=== PATIENT | male | born 1955 | race Caucasian/White ===

== ENCOUNTER 2021-06-23 07:02 | Day surgery (SDC) | payer MEDICARE, BC ==
[~2021-06-23] VITALS: Ht 180.3 cm; Wt 147.7 kg
[2021-06-23] MEDS ORDERED: glucagon, human recombinant 1mg kit ONE (07:10)
[2021-06-23] MEDS ORDERED: diphenhydrAMINE 50 mg/ml inj ONE (07:10)
[2021-06-23] MEDS ORDERED: fentaNYL/PF 50MCG/1 ML 2ML syringe ONE (07:10)
[2021-06-23] MEDS ORDERED: iohexol 300 MG/1 ML 50ml polymer ONE (07:10)
[2021-06-23] MEDS ORDERED: LIDOcaine Viscous 15ml cup ONE (07:10)
[2021-06-23] MEDS ORDERED: MIDAZolam 1 MG/ML 5ML VIAL ONE (07:10)
[2021-06-23] MEDS ORDERED: levoFLOXACIN-Levaquin 500mg/D5 100 ML IV ONE (07:10)
[2021-06-23 07:23] VITALS: BP 115/67
[2021-06-23] MEDS ORDERED: WARF2.5T82 PO (08:08)
[2021-06-23] MEDS ORDERED: INSU100C10 SQ (08:12)
[2021-06-23] MEDS ORDERED: WARF-55 PO (08:13)
[2021-06-23] MEDS ORDERED: LIRA0.6P2 SUBCUT (08:14)
[2021-06-23] MEDS ORDERED: INSU100I29 SQ (08:15)
[2021-06-23] MEDS ORDERED: ATOR20TA PO (08:17)
[2021-06-23] MEDS ORDERED: BUME2TAB7 PO (08:18)
[2021-06-23] MEDS ORDERED: CYAN25003 SL (08:20)
[2021-06-23] MEDS ORDERED: DILT180C90 PO (08:21)
[2021-06-23] MEDS ORDERED: DOCU100C40 PO (08:22)
[2021-06-23] MEDS ORDERED: [UNRECOGNIZED DRUG - CODE] PO (08:23)
[2021-06-23] MEDS ORDERED: UMEC62.5 INH (08:23)
[2021-06-23] MEDS ORDERED: LEVO150C4 PO (08:25)
[2021-06-23] MEDS ORDERED: LISI10TA27 PO (08:26)
[2021-06-23] MEDS ORDERED: METO25TA6 PO (08:27)
[2021-06-23] MEDS ORDERED: MONT10TA32 PO (08:27)
[2021-06-23] MEDS ORDERED: MORP30CP13 PO (08:29)
[2021-06-23] MEDS ORDERED: MULT-1085 PO (08:29)
[2021-06-23] MEDS ORDERED: OMEP20TA5 PO (08:30)
[2021-06-23] MEDS ORDERED: PARO40TA4 PO (08:31)
[2021-06-23] MEDS ORDERED: BUDE10.2 INH ×2 (08:32→08:33)
[2021-06-23] MEDS ORDERED: SENN-263 PO (08:32)
[2021-06-23] MEDS ORDERED: FEBU40TA PO (08:33)
[2021-06-23] MEDS ORDERED: CHOL500050 PO (08:34)
[2021-06-23] MEDS ORDERED: MAGN400C PO (08:35)
[2021-06-23] MEDS ORDERED: ASCO500C17 PO (08:35)
[2021-06-23] MEDS ORDERED: HYDR-3965 PO (08:36)
[2021-06-23] MEDS ORDERED: MAGN400O6 PO (08:37)
[2021-06-23 10:16] VITALS: BP 114/63
[2021-06-23 10:26] VITALS: BP 103/55
[2021-06-23 10:36] VITALS: BP 104/54
[2021-06-23 10:46] VITALS: BP 103/55
== END 2021-06-23 11:45 ==
LOC: GI LAB 07:02
PROVIDERS: ATTEND Internal Medicine Gastroenterology
DX: R13.14 Dysphagia, pharyngoesophageal phase (principal); K22.2 Esophageal obstruction; K21.00 Gastro-esophageal reflux disease with esophagitis, without bleeding; K22.10 Ulcer of esophagus without bleeding; G47.30 Sleep apnea, unspecified; J44.9 Chronic obstructive pulmonary disease, unspecified; I48.91 Unspecified atrial fibrillation; I10 Essential (primary) hypertension; E11.9 Type 2 diabetes mellitus without complications; E66.9 Obesity, unspecified; Z68.42 Body mass index [BMI] 45.0-49.9, adult; Z95.0 Presence of cardiac pacemaker; Z87.891 Personal history of nicotine dependence; Z79.899 Other long term (current) drug therapy; Z79.4 Long term (current) use of insulin; Z79.01 Long term (current) use of anticoagulants
CPT/HCPCS: 43239; 43248; 88305; 88312; 99152; A4620; C1769; G0500; J1200; J1610; J1956; J2250; J3010; J7040; Q9967